=== PATIENT | female | born 1995 | race African-American/Black ===

== ENCOUNTER 2022-04-03 11:49 | Emergency (ER) | payer SELFPAY ==
[~2022-04-03] VITALS: Ht 165.1 cm; Wt 86.2 kg
[2022-04-03] MEDS ORDERED: ACETAMINOPHEN 325 MG TABLET PO ONE (12:15)
[2022-04-03] MEDS ORDERED: AMOXICILLIN-CLAVUL 875-125MG TABLET PO ONE (12:15)
[2022-04-03] MEDS ORDERED: TDAP DIPH,PERTUSS,TET VAC/PF 0.5 ML DISP.SYRIN IM ONE (12:15)
[2022-04-03] MEDS ORDERED: ACET-2154 PO (12:18)
[2022-04-03] MEDS ORDERED: AMOX-430 PO (12:18)
--- NOTE | 2022-04-03 12:27 | NUR ---
roomed, endorsed to Micha PÉREZ
[2022-04-03] MEDS ORDERED: LIDOCAINE 5% PATCH TD ONE (12:28)
[2022-04-03] MEDS ORDERED: ACETAMINOPHEN 325 MG TABLET ONE (12:29)
[2022-04-03 12:43] LABS: *URINE HCG, QUAL NEGATIVE (NEGATIVE)
== END 2022-04-03 13:06 | disposition home or self-care (01) ==
LOC: ER 11:49
DX: S51.852A Open bite of left forearm, initial encounter (principal); W54.0XXA Bitten by dog, initial encounter; Y92.89 Other specified places as the place of occurrence of the external cause
CPT/HCPCS: 84703; 90715; A4663

== ENCOUNTER 2022-07-10 16:37 | Emergency (ER) | payer SELFPAY ==
[~2022-07-10] VITALS: Ht 165.1 cm; Wt 88.5 kg
[~2022-07-10 16:37] MED LIST: ACET-2154 PO; AMOX-430 PO
--- NOTE | 2022-07-10 17:13 | NUR ---
PT IS IN ROOM #2B. DR WOOD EVALUATED THE PT.
[2022-07-10] MEDS ORDERED: IBUPROFEN 600 MG TABLET PO ONE (17:30)
[2022-07-10] MEDS ORDERED: IBUPROFEN 600 MG TABLET ONE (17:37)
[2022-07-10] MEDS ORDERED: IBUP-1955 PO (18:25)
--- NOTE | 2022-07-10 18:45 | NUR ---
PT WAS D/C'd TO HOME. D/C INSTRUCTIONS GIVEN TO THE PT BY DR WOOD.
[2022-07-10 18:48] VITALS: BP 129/75
== END 2022-07-10 18:49 | disposition home or self-care (01) ==
LOC: ER 16:37
DX: S93.401A Sprain of unspecified ligament of right ankle, initial encounter (principal); W01.0XXA Fall on same level from slipping, tripping and stumbling without subsequent striking against object, initial encounter; Y92.019 Unspecified place in single-family (private) house as the place of occurrence of the external cause; M17.0 Bilateral primary osteoarthritis of knee
CPT/HCPCS: 73610; A4663